=== PATIENT | male | born 1970 | race Caucasian/White ===

== ENCOUNTER → 2021-05-18 | Outpatient (CLI) | payer BC | LOC: M LABSMTC 10:08 | PROVIDERS: ATTEND Anesthesiology | DX: Z01.812 Encounter for preprocedural laboratory examination (principal); Z20.822 Contact with and (suspected) exposure to COVID-19 ==

== ENCOUNTER 2021-05-23 08:58 | Day surgery (SDC) | payer BC ==
[~2021-05-23] VITALS: Ht 190.5 cm; Wt 122.0 kg
[~2021-05-23 08:58] MED LIST: NS 1,000 ML IV ONE
--- OUTSIDE RECORDS SUMMARY | 2021-05-23 09:02 | CCD | Continuity of Care Document ---
Author Author Vishnu GUSTAFSON [facility] Organization Unknown Address [address] [place] [address] Phone [phone] Care Team Providers Care Public Health Registrar Name Role Phone [facility] Surgery Practice - Surgery AUTM [phone] Problems Description No Information Available Social History Type Date Description Comments Sex Unknown Tobacco Use Start: Unknown Never Used Smokeless Tobacco ETOH Use Denies alcohol use Tobacco Use Start: Unknown Patient has never smoked Recreational Drug Use Denies Drug Use Smoking Status Reviewed: 04/05/21 Patient has never smoked Exercise Type/Frequency Exercises regularly Tattoo/Piercing Tattoo Sun Exposure Minimum amount of sun exposure Sun Exposure Uses sunscreen Sun Exposure Has experienced blistering from sunburns Sun Exposure History of sunburns during child simmons Sun Exposure Does not use tanning beds Seat Belt/Car Seat Always uses seat belt Bike Helmet Always Smoke Alarms Yes Smoke Alarms Carbon Monoxide Detector: Yes Allergies and adverse reactions Active Allergies Criticality Reaction | Severity Comments Date Penicillin Unable to assess criticality Urticaria, hives | Severe 01/23/2017 Tetracycline Unable to assess criticality Urticaria, hives | Severe 01/23/2017 [place]monds Unable to assess criticality Facial swelling 07/21/2018 Medications Active Medications SIG Qnty Indications Ordering Provide r Date Azithromycin 250mg Tablets 2 tabs today then one tab daily for 4 days 6tabs J01.90 Aicha Gustafson F NP 04/05/2021 Immunizations CPT Code Status Date Vaccine Lot # [id number] Given 07/28/2019 Influenza Virus Vaccine, Celio drivalent,multidose vial Vital Signs Date Vital Result Comment 04/05/2021 12:56pm BP Systolic 145 mmHg BP Diastolic 80 mmHg BP Systolic Recheck 139 mmHg BP Diastolic Recheck 86 mmHg Heart Rate 78 /min Body Temperature 96.9 F Respiratory Rate 16 /min Height 74.5 inches 6'2.50" Weight 278.56 lb O2 % BldC Oximetry 97 % Peak Expiratory Flow Rate 592 Estimated Peak Flow Rate [place] Body Weight 190 lb BMI (Body Mass Index) 35.3 kg/m2 03/21/2021 7:31am BP Systolic 146 mmHg BP Diastolic 85 mmHg BP Systolic Recheck 127 mmHg BP Diastolic Recheck 80 mmHg Heart Rate 68 /min Body Temperature 96.8 F Respiratory Rate 16 /min Height 74.5 inches 6'2.50" Weight 279.38 lb O2 % BldC Oximetry 100 % Peak Expiratory Flow Rate 592 Estimated Peak Flow Rate [place] Body Weight 190 lb BMI (Body Mass Index) 35.4 kg/m2 Results Description No Information Available Procedures Date Code Description Status 04/05/2021 35677 Office/Outpatient Established Lo w MDM 20-29 Min Completed 11/17/2020 31013 Preventive Medicine 40/64 Years, Est. Completed Medical Devices Description No Information Available Encounters Type Date Location Provider Dx Diagnosis Office Visit 04/05/2021 1:00p Main Office Aicha Gustafson FNP J01.9 0 Acute sinusitis, unspecified Office Visit 11/17/2020 8:30a Main Office Aicha Gustafson FNP Z00.0 0 Encntr for general adult medical exam w/o abnormal findings R03.0 Elevated blood-pressure read ing, w/o diagnosis of htn Assessments Date Code Description Provider 04/05/2021 J01.90 Acute sinusitis, unspecified Aicha Horton FNP 11/17/2020 Z00.00 Encounter for genera l adult medical examination without abnormal findings Aicha Gustafson FNP 11/17/2020 R03.0 Elevated blood-press ure reading, without diagnosis of hypertension Aicha Gustafson FNP Plan of Treatment 04/05/2021 - Aicha Gustafson FNP* J01.90 Acute sinusitis, unspecified* New Medication:* Azithromycin 250 mg - 2 tabs today then one tab daily for 4 days Functional Status Functional Condition Comment Date Status Wears corrective shoes on both feet corrective insoles for workb oots Active Independent with all ADL's Activ e Independent with all IADL's Acti ve Bifocal glasses Active Mental Status Mental Condition Comment Date Status None Active Can Understand Information Activ e Referrals Refer to Reason for Referral Status Appt Date [facility] General Surgery Practice Patient needs scree todd colonoscopy. Pt is requesting to be scheduled the same day as his Natalie Kent, her appt is 02/22/21 @ 9:[address] Howard. Thank you. Scheduled 03/29/[address] [place] [address], [address] [place], [place] [id number] [phone]
--- OUTSIDE RECORDS SUMMARY | 2021-05-23 09:02 | CCD | Continuity of Care Document ---
Author Author Vishnu HOWARD DO Organization Unknown Address [address] [place] [address] [address] [place] [address] Phone [phone] Care Team Providers Care Solar Electric/Photovoltaic Installer Name Role Phone Aicha Gustafson N.P. AUTM [phone] Problems Description No Information Available Social History Type Date Description Comments Sex Unknown ETOH Use Denies alcohol use Tobacco Use Start: Unknown Denies Smoking Recreational Drug Use Denies Drug Use Allergies and adverse reactions Active Allergies Criticality Reaction | Severity Comments Date Penicillins Unable to assess criticality Hives 03/29/2021 Tetracycline Unable to assess criticality Hives 03/29/2021 Medications Description No Active Medications Immunizations Description No Information Available Vital Signs Date Vital Result Comment 03/29/2021 8:28am BP Systolic 138 mmHg BP Diastolic 72 mmHg Body Temperature 98.4 F Height 74.5 inches 6'2.50" Weight 279.25 lb BMI (Body Mass Index) 35.4 kg/m2 [place] Body Weight 190 lb Weight 126.668 kg BSA (Body Surface Area) 2.52 m2 Results Description No Information Available Procedures Description No Information Available Medical Devices Description No Information Available Encounters Description No Information Available Assessments Description No Information Available Plan of Treatment No Information Available Functional Status Description No Information Available Mental Status Description No Information Available Referrals Refer to Reason for Referral Status Appt Date Cj Howard D.O. Scheduled 02/23/[address] [place] [address] [address] [place], [place] [address] [phone]
--- OUTSIDE RECORDS SUMMARY | 2021-05-23 09:02 | CCD | Continuity of Care Document ---
Author Author Vishnu GUSTAFSON [facility] Organization Unknown Address [address] [place] [address] Phone [phone] Care Team Providers Care Glass Checker Name Role Phone [facility] Surgery Practice - Surgery AUTM [phone] Problems Description No Information Available Social History [...] CPT Code Status Date Vaccine Lot # [id number] Given 07/28/2019 Influenza Virus Vaccine, Celio drivalent,multidose [...] Flow Rate 592 Estimated Peak Flow Rate [place] Body Weight 190 lb BMI (Body Mass [...] Flow Rate 592 Estimated Peak Flow Rate [place] Body Weight 190 lb BMI (Body Mass Index) 35.4 kg/m2 Results Description No Information Available Procedures Date Code Description Status 04/05/2021 49592 Office/Outpatient Established Lo w MDM 20-29 Min Completed 11/17/2020 36083 Preventive Medicine 40/64 Years, Est. Completed Medical [...] to Reason for Referral Status Appt Date [facility] General Surgery Practice Patient needs scree todd colonoscopy. Pt is requesting to be scheduled the same day as his Natalie Kent, her appt is 02/22/21 @ 9:[address] Howard. Thank you. Scheduled 03/29/[address] [place] [address], [address] [place], [place] [id number] [phone]
--- OUTSIDE RECORDS SUMMARY | 2021-05-23 09:02 | CCD | Continuity of Care Document ---
Author Author Vishnu GUSTAFSON [facility] Organization Unknown Address [address] [place] [address] Phone [phone] Care Team Providers Care Meat Inspector Name Role Phone [facility] Surgery Practice - Surgery AUTM [phone] Problems Description No Information Available Social History [...] CPT Code Status Date Vaccine Lot # [id number] Given 07/28/2019 Influenza Virus Vaccine, Celio drivalent,multidose [...] Flow Rate 592 Estimated Peak Flow Rate [place] Body Weight 190 lb BMI (Body Mass [...] Flow Rate 592 Estimated Peak Flow Rate [place] Body Weight 190 lb BMI (Body Mass Index) 35.4 kg/m2 Results Description No Information Available Procedures Date Code Description Status 04/05/2021 64758 Office/Outpatient Established Lo w MDM 20-29 Min Completed 11/17/2020 91792 Preventive Medicine 40/64 Years, Est. Completed Medical [...] to Reason for Referral Status Appt Date [facility] General Surgery Practice Patient needs scree todd colonoscopy. Pt is requesting to be scheduled the same day as his Natalie Kent, her appt is 02/22/21 @ 9:[address] Howard. Thank you. Scheduled 03/29/[address] [place] [address], [address] [place], [place] [id number] [phone]
--- OUTSIDE RECORDS SUMMARY | 2021-05-23 09:02 | CCD | Continuity of Care Document ---
Author Author Vishnu GUSTAFSON [facility] Organization Unknown Address [address] [place] [address] Phone [phone] Care Team Providers Care Desizing Machine Operator Head End Name Role Phone [facility] Surgery Practice - Surgery AUTM [phone] Problems Description No Information Available Social History [...] CPT Code Status Date Vaccine Lot # [id number] Given 07/28/2019 Influenza Virus Vaccine, Celio drivalent,multidose [...] Flow Rate 592 Estimated Peak Flow Rate [place] Body Weight 190 lb BMI (Body Mass [...] Flow Rate 592 Estimated Peak Flow Rate [place] Body Weight 190 lb BMI (Body Mass Index) 35.4 kg/m2 Results Description No Information Available Procedures Date Code Description Status 04/05/2021 38343 Office/Outpatient Established Lo w MDM 20-29 Min Completed 11/17/2020 02325 Preventive Medicine 40/64 Years, Est. Completed Medical [...] to Reason for Referral Status Appt Date [facility] General Surgery Practice Patient needs scree todd colonoscopy. Pt is requesting to be scheduled the same day as his Natalie Kent, her appt is 02/22/21 @ 9:[address] Howard. Thank you. Scheduled 03/29/[address] [place] [address], [address] [place], [place] [id number] [phone]
--- OUTSIDE RECORDS SUMMARY | 2021-05-23 09:02 | CCD | Continuity of Care Document ---
Author Author Vishnu HOWARD DO Organization Unknown Address [address] [facility], [address] [place] [address] Phone [phone] Care Team Providers Care Automotive Parts Clerk Name Role Phone Aicha Gustafson N.P. AUTM [phone] Problems Description No Information Available Social History [...] lb BMI (Body Mass Index) 35.4 kg/m2 [place] Body Weight 190 lb Weight 126.668 kg BSA (Body Surface Area) 2.52 m2 Results Description No Information Available Procedures Date Code Description Status 03/29/2021 15804 Office/Outpatient New Low [facility] 30 -44 Minutes Completed Medical Devices Description No Information Available Encounters Type Date Location Provider Dx Diagnosis Office Visit 03/29/2021 8:45a [facility] Cj Howard DO Z12.11 Encounter for screening for malignant ne oplasm of colon Assessments Date Code Description Provider 03/29/2021 Z12.11 Encounter for screening for markos gnant neoplasm of colon Cj Howard DO Plan of Treatment Future Appointment(s):* 06/04/2021 10:00 am - MARRY Leonard at [facility] * 05/23/2021 10:00 am - Cj Howard DO at [facility] 03/29/2021 - Cj Howard DO* Z12.11 Encounter for screening for malignant neoplasm of colon* Comments:* 50 y/o male presents for screening colonoscopy. Risks and benefits include, but are not limited to, bleeding, infection, and perforation. He understands the risks, and elects to proceed with procedure. Functional Status Description No Information Available Mental Status Description No Information Available Referrals Refer to Reason for Referral Status Appt Date Cj Howard D.O. Scheduled 02/23/[address] [place] [address] [phone]
--- OUTSIDE RECORDS SUMMARY | 2021-05-23 09:02 | CCD | Continuity of Care Document ---
Author Author Vishnu GUSTAFSON [facility] Organization Unknown Address [address] [place] [address] Phone [phone] Care Team Providers Care Delivery Agent Name Role Phone [facility] Surgery Practice - Surgery AUTM [phone] Problems Description No Information Available Social History [...] CPT Code Status Date Vaccine Lot # [id number] Given 07/28/2019 Influenza Virus Vaccine, Celio drivalent,multidose [...] Flow Rate 592 Estimated Peak Flow Rate [place] Body Weight 190 lb BMI (Body Mass [...] Flow Rate 592 Estimated Peak Flow Rate [place] Body Weight 190 lb BMI (Body Mass Index) 35.4 kg/m2 Results Description No Information Available Procedures Date Code Description Status 04/05/2021 98250 Office/Outpatient Established Lo w MDM 20-29 Min Completed 11/17/2020 52978 Preventive Medicine 40/64 Years, Est. Completed Medical [...] Provider 04/05/2021 J01.90 Acute sinusitis, unspecified Aicha Hortno FNP 11/17/2020 Z00.00 Encounter for genera l [...] with Dr. Howard. Thank you. Scheduled 03/29/[address] [place] [address], [address] [place], [place] [id number] [phone]
--- OUTSIDE RECORDS SUMMARY | 2021-05-23 09:02 | CCD ---
Author Author [facility] Address Unknown Phone Unavailable Care Team Providers Care Telecommunications Network Planner Name Role Phone Pleskach, Aicha SPOUTER Unavailable Unavailable Pleskach, Aicha SPOUTER Unavailable Unavailable Pleskach, Aicha SPOUTER Unavailable Unavailable Pleskach, Aicha SPOUTER Unavailable Unavailable Pleskach, Aicha SPOUTER Unavailable Unavailable Pleskach, Aicha SPOUTER Unavailable Unavailable Pleskach, Aicha SPOUTER Unavailable Unavailable Pleskach, Aicha SPOUTER Unavailable Unavailable Pleskach, Aicha SPOUTER Unavailable Unavailable Pleskach, Aicha SPOUTER Unavailable Unavailable Pleskach, Aicha SPOUTER Unavailable Unavailable Pleskach, Aicha SPOUTER Unavailable Unavailable Pleskach, Aicha SPOUTER Unavailable Unavailable Pleskach, Aicha SPOUTER Unavailable Unavailable Pleskach, Aicha SPOUTER Unavailable Unavailable Pleskach, Aicha SPOUTER Unavailable Unavailable Pleskach, Aicha SPOUTER Unavailable Unavailable Pleskach, Aicha SPOUTER Unavailable Unavailable Pleskach, Aicha SPOUTER Unavailable Unavailable Pleskach, Aicha SPOUTER Unavailable Unavailable Pleskach, Aicha SPOUTER Unavailable Unavailable Pleskach, Aicha SPOUTER Unavailable Unavailable Pleskach, Aicha SPOUTER Unavailable Unavailable Pleskach, Aicha SPOUTER Unavailable Unavailable Pleskach, Aicha SPOUTER Unavailable Unavailable Pleskach, Aicha SPOUTER Unavailable Unavailable Pleskach, Aicha SPOUTER Unavailable Unavailable Pleskach, Aicha SPOUTER Unavailable Unavailable Pleskach, Aicha SPOUTER Unavailable Unavailable Pleskach, Aicha SPOUTER Unavailable Unavailable Pleskach, Aicha SPOUTER Unavailable Unavailable Pleskach, Aicha SPOUTER Unavailable Unavailable Pleskach, Aicha SPOUTER Unavailable Unavailable Pleskach, Aicha SPOUTER Unavailable Unavailable Pleskach, Aicha SPOUTER Unavailable Unavailable Pleskach, Aicha SPOUTER Unavailable Unavailable Pleskach, Aicha SPOUTER Unavailable Unavailable Pleskach, Aicha SPOUTER Unavailable Unavailable Pleskach, Aicha SPOUTER Unavailable Unavailable Pleskach, Aicha SPOUTER Unavailable Unavailable Pleskach, Aicha SPOUTER Unavailable Unavailable Pleskach, Aicha SPOUTER Unavailable Unavailable Pleskach, Aicha SPOUTER Unavailable Unavailable Pleskach, Aicha SPOUTER Unavailable Unavailable BRYDEN, A KATHRIN DO Unavailable Unavailable BRYDEN, A KATHRIN DO Unavailable Unavailable BRYDEN, A KATHRIN DO Unavailable Unavailable BRYDEN, A KATHRIN DO Unavailable Unavailable BRYDEN, A KATHRIN DO Unavailable Unavailable BRYDEN, A KATHRIN DO Unavailable Unavailable BRYDEN, A KATHRIN DO Unavailable Unavailable BRYDEN, A KATHRIN DO Unavailable Unavailable BRYDEN, A KATHRIN DO Unavailable Unavailable BRYDEN, A KATHRIN DO Unavailable Unavailable BRYDEN, A KATHRIN DO Unavailable Unavailable BRYDEN, A KATHRIN DO Unavailable Unavailable BRYDEN, A KATHRIN DO Unavailable Unavailable BRYDEN, A KATHRIN DO Unavailable Unavailable BRYDEN, A KATHRIN DO Unavailable Unavailable BRYDEN, A KATHRIN DO Unavailable Unavailable BRYDEN, A KATHRIN DO Unavailable Unavailable BRYDEN, A KATHRIN DO Unavailable Unavailable BRYDEN, A KATHRIN DO Unavailable Unavailable BRYDEN, A KATHRIN DO Unavailable Unavailable BRYDEN, A KATHRIN DO Unavailable Unavailable BRYDEN, A KATHRIN DO Unavailable Unavailable BRYDEN, A KATHRIN DO Unavailable Unavailable BRYDEN, A KATHRIN DO Unavailable Unavailable BRYDEN, A KATHRIN DO Unavailable Unavailable BRYDEN, A KATHRIN DO Unavailable Unavailable BRYDEN, A KATHRIN DO Unavailable Unavailable BRYDEN, A KATHRIN DO Unavailable Unavailable BRYDEN, A KATHRIN DO Unavailable Unavailable Re-disclosure Warning The records that you are about to access may contain information from federally-assisted alcohol or drug abuse programs. If such information is present, then the following federally mandated warning applies: This information has been disclosed to you from records protected by federal confidentiality rules (42 CFR part 2). The federal rules prohibit you from making any further disclosure of this information unless further disclosure is expressly permitted by the written consent of the person to whom it pertains or as otherwise permitted by 42 CFR part 2. A general authorization for the release of medical or other information is NOT sufficient for this purpose. The Federal rules restrict any use of the information to criminally investigate or prosecute any alcohol or drug abuse patient.The records that you are about to access may contain highly sensitive health information, the redisclosure of which is protected by Article 27-F of the [facility] Public Health law. If you continue you may have access to information: Regarding HIV / AIDS; Provided by facilities licensed or operated by the [facility] Office of Mental Health; or Provided by the [facility] Office for People With Developmental Disabilities. If such information is present, then the following [facility] mandated warning applies: This information has been disclosed to you from confidential records which are protected by state law. State law prohibits you from making any further disclosure of this information without the specific written consent of the person to whom it pertains, or as otherwise permitted by law. Any unauthorized further disclosure in violation of state law may result in a fine or alf sentence or both. A general authorization for the release of medical or other information is NOT sufficient authorization for further disc losure. Family History Family Member Name Family Member Gender Family Member Status Date o f Status Description Data Source(s) Unknown Unknown Problem [facility] ([facility]) Unknown Male Problem [facility] ([facility] () Unknown Male Problem [facility] ([facility] Encounters Encounter Providers Location Date Indications Data Source(s ) Outpatient Attender: Aicha Gustafson [facility] Main Office 04/05/2021 0 1:00:00 PM EDT [facility] ([facility] Outpatient Attender: KATHRIN Wasserman/Dharmesh/Blayne/Maurice ndl 03/29/2021 08:45:00 AM EDT [facility] ([facility] Outpatient Attender: Aicha Gustafson [facility] Main Office 11/17/2020 0 8:30:00 AM EDT [facility] ([facility] Immunizations Vaccine Date Status Description Data Source(s) COVID-19 VACC, MRNA(PFIZER)/PF 04/23/2021 12:00:00 AM EST completed [facility] COVID-19 VACCINE Pfizer 04/02/2021 12:00:00 AM EDT completed [facility] Vaccine Series Complete: NOThis Data was Submitted to [facility] Via [employer] COVID-19 VACC, MRNA(PFIZER)/PF 04/02/2021 12:00:00 AM EDT completed [facility] Medications Medication Brand Name Start Date Product Form Dose Route Admi nistrative Instructions Pharmacy Instructions Status Indications Reaction Description Data Source(s) SUPREP BOWEL PREP KIT 17.5-3.13-1.6 gram SODIUM, POTASSIUM,M AG SULFATES 05/08/2021 12:00:00 AM EST recon soln 354 TAKE DIRECTED PER DOCTOR'S INSTRUCTIONS TAKE DIRECTED PER DOCTOR'S INSTRUCTIONS SOLD: 05/15/2021 [facility] Azithromycin 250 MG Oral Tablet Azithromycin 04/05/2021 12:00:00 AM EDT active [facility] ([facility] 250 mg 04/05/2021 12:00:00 AM EDT tablet 6 TAKE TWO TABLETS BY MOUTH AT ONCE ON THE FIRST DAY THEN TAKE ONE DAILY THEREAFTER TAKE TWO TABLETS BY MOUTH AT ONCE ON THE FIRST DAY THEN TAKE ONE DAILY THEREAFTER SOLD: 04/05/2021 [facility] Insurance Providers Payer name Policy type / Coverage type Policy ID Covered alliance party ID Covered alliance party's relationship to dow Policy Dow Plan Information [employer] [id number] SP [id number] [employer] [id number] SP [id number] [place] Federal Employee Program J [id number] SELF [id number] [facility] [place] [employer] (HMO) [id number] Self [id number] [facility] Federal Plan Commercial [id number] Self [id number] [facility] [place] [employer] (HMO) [id number] Self [id number] [facility] [place] [employer] (HMO) [id number] [facility] Commercial [id number] Self [id number] [facility] [place] [employer] Maintenance Organization ([facility]) [id number] Self [id number] Problems, Conditions, and Diagnoses No Information Surgeries/Procedures Procedure Description Date Indications Data Source(s) OFFICE OUTPATIENT VISIT 15 MINUTES 04/05/2021 12:00:00 AM EDT [facility] ([facility] OFFICE OUTPATIENT NEW 30 MINUTES 03/29/2021 12:00:00 A M EDT [facility] ([facility], ) PERIODIC PREVENTIVE MED EST PATIENT 40-64YRS 12:00:00 AM EDT [facility] ([facility] Results ID Date Data Source [id number] 05/18/2021 10:10:00 AM EST [facility] Name Value Range Interpretation Code Description Data Yanique rce(s) Supporting Document(s) SARS-CoV-2 (COVID-19) RNA [Presence] in Respiratory specimen by JORY with probe detection Not Detected [facility] This lab was ordered by [facility] and reported by [employer] ID Date Data Source [id number] 06/21/2020 12:00:00 AM EST [facility] Name Value Range Interpretation Code Description Data Yanique rce(s) Supporting Document(s) SARS-CoV2 Rapid Antigen Negative [facility] This lab was ordered by [facility] and reported by [facility]. ID Date Data Source [id number] 05/19/2020 12:00:00 AM EST [facility] Name Value Range Interpretation Code Description Data Yanique rce(s) Supporting Document(s) SARS coronavirus 2 Ag [facility] This lab was ordered by [facility] and reported by [facility]. Procedure Social History Code Duration Value Status Description Data Source(s ) Smoking 04/05/2021 12:00:00 AM EDT Patient has never smoked co mpleted Patient has never smoked [facility] ([facility] Vital Signs ID Date Data Source UNK Name Value Range Interpretation Code Description Data Source(s) Systolic blood pressure 145 mm[Hg] 145 mm[Hg] M [facility] ([facility] Diastolic blood pressure 80 mm[Hg] 80 mm[Hg] [facility] ([facility] Systolic blood pressure 139 mm[Hg] 139 mm[Hg] M [facility] ([facility] Diastolic blood pressure 86 mm[Hg] 86 mm[Hg] [facility] ([facility] Heart rate 78 /min 78 /min [facility] ([facility] Gilberts body weight 190 [lb_av] 190 [lb_av] [facility] T ([facility] Body mass index (BMI) [Ratio] 35.3 kg/m2 35.3 k g/m2 [facility] ([facility] Body temperature 96.9 [degF] 96.9 [degF] [facility] ([facility] Respiratory rate 16 /min 16 /min [facility] ( [facility] Body height 74.5 [in_i] 74.5 [in_i] [facility] ([facility] 6'2.50" Body weight 278.56 [lb_av] 278.56 [lb_av] [facility] T ([facility] Oxygen saturation in Arterial blood by Pulse oximetry 97 % 97 % [facility] ([facility] Systolic blood pressure 138 mm[Hg] 138 mm[Hg] [facility] Diastolic blood pressure 72 mm[Hg] 72 mm[Hg] [facility] ([facility]) Body temperature 98.4 [degF] 98.4 [degF] [facility] ([facility]) Body height 74.5 [in_i] 74.5 [in_i] [facility] ([facility]) 6'2.50" Body weight 279.25 [lb_av] 279.25 [lb_av] [facility] T ([facility]) Body mass index (BMI) [Ratio] 35.4 kg/m2 35.4 k g/m2 [facility] ([facility]) Gilberts body weight 190 [lb_av] 190 [lb_av] [facility] T ([facility]) Body weight 126.668 kg 126.668 kg [facility] ([facility]) Body surface area Derived from formula 2.52 m2 2.52 m2 [facility] ([facility]) Diastolic blood pressure 85 mm[Hg] 85 mm[Hg] [facility] Systolic blood pressure 127 mm[Hg] 127 mm[Hg] M [facility] ([facility] Body height 74.5 [in_i] 74.5 [in_i] [facility] ([facility] 6'2.50" Body weight 279.38 [lb_av] 279.38 [lb_av] [facility] T ([facility] Systolic blood pressure 146 mm[Hg] 146 mm[Hg] M EDENT ([facility] Diastolic blood pressure 80 mm[Hg] 80 mm[Hg] [facility] ([facility] Heart rate 68 /min 68 /min [facility] ([facility] Body temperature 96.8 [degF] 96.8 [degF] [facility] ([facility] Respiratory rate 16 /min 16 /min [facility] ( [facility] Oxygen saturation in Arterial blood by Pulse oximetry 100 % 100 % [facility] ([facility] Gilberts body weight 190 [lb_av] 190 [lb_av] [facility] T ([facility] Body mass index (BMI) [Ratio] 35.4 kg/m2 35.4 k g/m2 [facility] ([facility] Systolic blood pressure 171 mm[Hg] 171 mm[Hg] M [facility] ([facility] Diastolic blood pressure 91 mm[Hg] 91 mm[Hg] [facility] ([facility] Systolic blood pressure 154 mm[Hg] 154 mm[Hg] M [facility] ([facility] Diastolic blood pressure 89 mm[Hg] 89 mm[Hg] [facility] ([facility] Heart rate 82 /min 82 /min [facility] ([facility] Body temperature 97.3 [degF] 97.3 [degF] [facility] ([facility] Respiratory rate 16 /min 16 /min [facility] ( [facility] Body height 74.5 [in_i] 74.5 [in_i] [facility] ([facility] 6'2.50" Body weight 280.25 [lb_av] 280.25 [lb_av] [facility] T ([facility] Oxygen saturation in Arterial blood by Pulse oximetry 97 % 97 % [facility] ([facility] Gilberts body weight 190 [lb_av] 190 [lb_av] [facility] T ([facility] Body mass index (BMI) [Ratio] 35.5 kg/m2 35.5 k g/m2 [facility] ([facility]
[2021-05-23] MEDS ORDERED: propofoL 200 MG/20 ML VIAL As Ordered ONE ×2 (09:55→10:10)
--- NOTE | 2021-05-23 10:29 | ROOR ---
Patient Name: Vishnu Kent Procedure Date: 05/23/2021 10:06 AM Date of : 1970 Age: 50 Room: [facility] Gender: Male Note Status: Finalized Procedure: Colonoscopy Indications: Screening for colorectal malignant neoplasm Providers: DO Kalli Poon MD: Natalya Str[facility] MD Requesting Provider: Medicines: Propofol per Anesthesia Complications: No immediate complications. Procedure: Pre-Anesthesia Assessment: - Prior to the procedure, a History and Physical was performed, and patient medications and allergies were reviewed. The patient is competent. The risks and benefits of the procedure and the sedation options and risks were discussed with the patient. All questions were answered and informed consent was obtained. Patient identification and proposed procedure were verified by the physician, the nurse, the anesthesiologist and the copy technician in the endoscopy suite. Mental Status Examination: alert and oriented. Airway Examination: normal oropharyngeal airway and neck mobility. Respiratory Examination: clear to auscultation. CV Examination: normal. Prophylactic Antibiotics: The patient does not require prophylactic antibiotics. Prior Anticoagulants: The patient has taken no previous anticoagulant or antiplatelet agents. ASA Grade Assessment: II - A patient with mild systemic disease. After reviewing the risks and benefits, the patient was deemed in satisfactory condition to undergo the procedure. The anesthesia plan was to use monitored anesthesia care (MAC). Immediately prior to administration of medications, the patient was re-assessed for adequacy to receive sedatives. The heart rate, respiratory rate, oxygen saturations, blood pressure, adequacy of pulmonary ventilation, and response to care were monitored throughout the procedure. The physical status of the patient was re-assessed after the procedure. The Colonoscope was introduced through the anus and advanced to the cecum, identified by appendiceal orifice and ileocecal valve. The colonoscopy was performed without difficulty. The patient tolerated the procedure well. Findings: Non-bleeding internal hemorrhoids were found during retroflexion. The hemorrhoids were Grade II (internal hemorrhoids that prolapse but reduce spontaneously). Impression: - Non-bleeding internal hemorrhoids. - No specimens collected. Recommendation: - Patient has a contact number available for emergencies. The signs and symptoms of potential delayed complications were discussed with the patient. Return to normal activities tomorrow. Written discharge instructions were provided to the patient. - Repeat colonoscopy in 5-10 years for screening purposes. - Return to my office PRN. Procedure Code(s): --- Professional --- G0121, Colorectal cancer screening; colonoscopy on individual not meeting criteria for high risk Diagnosis Code(s): --- Professional --- Z12.11, Encounter for screening for malignant neoplasm of colon K64.1, Second degree hemorrhoids CPT copyright 2019 [employer]. All rights reserved. The codes documented in this report are preliminary and upon cemetery worker review may be revised to meet current compliance requirements. Cj Howard DO 05/23/2021 10:28:43 AM Electronically signed by Cj Howard DO Number of Addenda: 0 Note Initiated On: 05/23/2021 10:06 AM Estimated Blood Loss: Estimated blood loss: none.
[2021-05-23 10:52] VITALS: BP 157/97
== END 2021-05-23 10:55 | disposition home or self-care (01) ==
LOC: M OPP 08:58
PROVIDERS: ATTEND Surgery
DX: Z12.11 Encounter for screening for malignant neoplasm of colon (principal); K64.1 Second degree hemorrhoids; Z88.0 Allergy status to penicillin; Z88.1 Allergy status to other antibiotic agents

== ENCOUNTER → 2024-01-12 | Outpatient (CLI) | payer BC ==
[2024-01-12 12:06] LABS: ALBUMIN 4.1 G/DL (3.2-5.2); ALKALINE PHOSPHATASE 84 U/L (46-116); ALT/SGPT 22 U/L (7.0-40); AST/SGOT 29 U/L (<34); BILIRUBIN,TOTAL 0.5 MG/DL (0.3-1.2); BLOOD UREA NITROGEN 16 MG/DL (9-23); CARBON DIOXIDE LEVEL 26 MMOL/L (20-31); CHLORIDE LEVEL 108 MMOL/L (98-107); CHOLESTEROL LEVEL 181 MG/DL (<200); CHOLESTEROL RISK RATIO 4.02 (<5); CREATININE FOR GFR 1.03 MG/DL (0.70-1.30); GLOMERULAR FILTRATION RATE > 60.0 (>56); GLUCOSE, FASTING 96 MG/DL (60-100); LDL CHOLESTEROL 122.8 MG/DL (<100); POTASSIUM SERUM 4.7 MMOL/L (3.5-5.1); SODIUM LEVEL 141 MMOL/L (136-145); TRIGLYCERIDES LEVEL 66 MG/DL (<150)
== END ==
LOC: M PLALAB 09:13
PROVIDERS: ATTEND Nurse Practitioner Family
DX: Z00.00 Encounter for general adult medical examination without abnormal findings (principal)